=== PATIENT | male | born 1955 | race Caucasian/White ===

== ENCOUNTER 2022-04-20 09:32 | Outpatient (CLI) | payer MEDICARE ==
[2022-04-20] MEDS ORDERED: Magnevist 469MG/ML 20 ML VIAL ONE (12:44)
== END 2022-04-20 09:33 | disposition home or self-care (01) ==
LOC: TBSIIMAG 09:32
PROVIDERS: ATTEND Urology
DX: C61 Malignant neoplasm of prostate (principal)
CPT/HCPCS: 72197; A9579

== ENCOUNTER 2025-01-21 12:31 | Outpatient (CLI) | payer MEDICARE ==
[2025-01-21 13:15] LABS: Estimated GFR - POC 81.0
== END 2025-01-21 12:32 | disposition home or self-care (01) ==
LOC: SCSMRI 12:31
PROVIDERS: ATTEND Urology
DX: C61 Malignant neoplasm of prostate (principal)
CPT/HCPCS: 36415; 72197; 82565